=== PATIENT | female | born 1965 | race Caucasian/White ===

== ENCOUNTER 2020-08-08 10:09 | Observation (INO) | payer OTHER ==
[2020-08-08] MEDS ORDERED: diphenhydrAMINE 50 MG/ML 1 ML VIAL IVP STA (10:25)
[2020-08-08] MEDS ORDERED: MORPHINE SULFATE 4 MG/ML SYRINGE IV STA (10:25)
[2020-08-08] MEDS ORDERED: ONDANSETRON 4 MG/2 ML VIAL IVP STA (10:25)
[2020-08-08] MEDS ORDERED: SODIUM CHLORIDE 0.9% 1,000 ML IV STA (10:25)
--- NOTE | 2020-08-08 10:35 | ED ---
Abdominal Pain HPI - General Chief Complaint: Abdominal Pain Stated Complaint: abd pain Time Seen by Provider: 08/08/20 10:15 Source: patient Mode of arrival: wheelchair Limitations: no limitations - History of Present Illness Initial Comments: Patient is a 54-year-old female with past medical history remarkable for multiple abdominal surgeries including lap band procedure done 10 years ago with no complications, Bladder suspension surgery, tummy tuck, breast augmentation presents emergency department complaining of acute onset of abdominal pain. Th is occurred this morning at approximately 6 AM and is progressively worse. She is comes as a sharp, achy sensation epigastric and right upper quadrant region. She endorses multiple episodes of nonbilious nonbloody emesis, likely secondary to pain. She's been unable tolerate by mouth intake since onset of the pain this morning. She denies any chest pain, shortness breath fevers, chills, cough and she denies any sick contacts. Denies any urinary complaints, dysuria, hematuria. Should she is not . She is no pedal discharged or bleeding. She denies any diarrhea. She last had a normal bowel movement this morning. This was nonbloody. Patient otherwise has no acute complaints at this time. She was strep and this causing pain, and she contacted her surgeon, Dr. Neli who instructed her to come to the emergency department for evaluation. - Related Data Home Medications Medication Instructions Recorded Confirmed No Known Home Medications 08/08/20 08/08/20 Allergies Allergy/AdvReac Type Severity Reaction Status Date / Time No Known Allergies Allergy Verified 08/08/20 11:08 Review of Systems ROS Statement: Those systems with pertinent positive or pertinent negative responses have been documented in the HPI. Review of Systems: CONST: Denies fever EYES: Denies blurry vision ENT: Denies nasal congestion C/V: Denies Chest pain RESP: Denies shortness of breath GI: Endorses abdominal pain : Denies dysuria SKIN: Denies rash. MSK: Denies joint pain. NEURO: Denies headache ROS Other: All systems not noted in ROS Statement are negative. Past Medical History Past Medical History: No Reported History History of Any Multi-Drug Resistant Organisms: None Reported Additional Past Surgical History / Comment(s): lap band, bladder suspension, tummy tuck, breast implants Past Psychological History: No Psychological Hx Reported Smoking Status: Never smoker Past Alcohol Use History: None Reported Past Drug Use History: None Reported Additional History: PCP is Dr. Kinney. Surgeon is Dr. Wilson. - Past Family History Mother History Unknown: Yes General Exam - General Exam Comments Initial Comments: Constitutional: Blood pressure was 152/88, pulse was 85, respirations were 18, pulse oximetry was 100% on room, temperature was 97.8. General: Degrees in mild to moderate distress secondary to abdominal pain. HEAD: Normal with no signs of head trauma. EYES: PERRLA, EOMI, conjunctiva normal, no discharge. ENT: Hearing grossly intact, normal oropharynx. RESPIRATORY: Clear breath sounds bilaterally. No wheezes, rales, or rhonchi. C/V: Regular rate and rhythm. S1 and S2 auscultated, no edema, peripheral pulses 2+ and intact throughout ABD: Abdomen soft, nondistended. Patient is tender to palpation in the epigastric and right upper quadrant in addition to right CVA tenderness to percussion. There is no guarding. There are no peritoneal signs or rebound tenderness. EXT: Normal range of motion, no obvious deformity SKIN: No rashes or lesions observed on exposed skin. NEURO: Alert and oriented 4. Limitations: no limitations Course Vital Signs 08/08/20 08/08/20 08/08/20 10:10 13:54 15:29 Temperature 97.8 F Pulse Rate 85 70 67 Respiratory 18 18 18 Rate Blood Pressure 152/88 141/70 129/61 O2 Sat by Pulse 100 99 97 Oximetry 08/08/20 15:45 Temperature 97.8 F Pulse Rate 67 Respiratory 18 Rate Blood Pressure 129/61 O2 Sat by Pulse 97 Oximetry Medical Decision Making - Medical Decision Making Based on the patient's presentation and physical exam, concern for possible ac leni intra-abdominal process for current symptoms, cannot rule out ACS and at this time either due to her age with complaints of primarily nausea and vomiting the presence of epigastric abdominal pain. Therefore we will obtain an abdominal laboratory studies: CMP, CBC. We will also obtain urine laboratory studies including urinalysis. Troponin, EKG, chest x-ray will be obtained to evaluate for ACS. Heart score is low at 1. She will be connected to continuous cardiac monitoring while she is here with department. She'll be symptomatically treated with a liter fluid bolus as well as IV famotidine, Benadryl, morphine, Zofran. CT abdomen and pelvis also be obtained. She was in agreement with this plan. I attempted to contact the patient's surgeon, Dr. Wilson, however he is out of town. EKG was obtained revealed no acute signs for ischemic changes. Chest x-ray revealed no acute cardiopulmonary process.CT abdomen and pelvis revealed a distended gallbladder with small gallstones seen, with a small amount of pericholecystic fluid. Patient's laboratory studies are remarkable for an elevated AST that is mildly elevated to 54. Troponin is normal. The remainder of her laboratory studies are within normal limits. On reevaluation, patient is continued Pain, this time primarily in the right upper quadrant. I did redose her pain medications. I did discuss with her the results of her laboratory studies and explained that she appears to be having symptomatic cholelithiasis. I explained that she may require surgery and I would like to image the hospital and she is still not tolerating by mouth intake and is continuing to have severe abdominal pain. She was in agreement with this plan. The patient's surgeon is out of town. Therefore I will consult and speak with the on-call surgeon, Dr. Alvarado. She agreed to accept the patient under her service. I therefore admitted the patient in fair condition to the surgery service. - Lab Data Result diagrams: 08/08/20 11:28 08/08/20 11:28 Lab Results 08/08/20 08/08/20 08/08/20 Range/Units 11:16 11:16 11:28 WBC 8.6 (3.8-10.6) k/uL RBC 4.30 (3.80-5.40) m/uL Hgb 13.3 (11.4-16.0) gm/dL Hct 40.0 (34.0-46.0) % MCV 93.0 (80.0-100.0) fL MCH 31.0 (25.0-35.0) pg MCHC 33.4 (31.0-37.0) g/dL RDW 12.1 (11.5-15.5) % Plt Count 227 (150-450) k/uL MPV 7.6 Neutrophils % 77 % Lymphocytes % 15 % Monocytes % 6 % Eosinophils % 0 % Basophils % 1 % Neutrophils # 6.6 (1.3-7.7) k/uL Lymphocytes # 1.3 (1.0-4.8) k/uL Monocytes # 0.5 (0-1.0) k/uL Eosinophils # 0.0 (0-0.7) k/uL Basophils # 0.1 (0-0.2) k/uL PT (9.0-12.0) sec INR (<1.2) APTT (22.0-30.0) sec Sodium (137-145) mmol/L Potassium (3.5-5.1) mmol/L Chloride (98-107) mmol/L Carbon Dioxide (22-30) mmol/L Anion Gap mmol/L BUN (7-17) mg/dL Creatinine (0.52-1.04) mg/dL Est GFR (CKD-EPI)AfAm (>60 ml/min/1.73 sqM) Est GFR (CKD-EPI)NonAf (>60 ml/min/1.73 sqM) Glucose (74-99) mg/dL Calcium (8.4-10.2) mg/dL Total Bilirubin (0.2-1.3) mg/dL AST (14-36) U/L ALT (4-34) U/L Alkaline Phosphatase (38-126) U/L Troponin I (0.000-0.034) ng/mL Total Protein (6.3-8.2) g/dL Albumin (3.5-5.0) g/dL Lipase (23-300) U/L Urine Color Light Yellow Urine Appearance Clear (Clear) Urine pH 6.5 (5.0-8.0) Ur Specific [place] 1.011 (1.001-1.035) Urine Protein Negative (Negative) Urine Glucose (UA) Negative (Negative) Urine Ketones Negative (Negative) Urine Blood Negative (Negative) Urine Nitrite Negative (Negative) Urine Bilirubin Negative (Negative) Urine Urobilinogen <2.0 (<2.0) mg/dL Ur Leukocyte Esterase Negative (Negative) Urine HCG, Qual Not Detected (Not Detectd) Blood Type Confirm 08/08/20 08/08/20 08/08/20 Range/Units 11:28 11:28 11:28 WBC (3.8-10.6) k/uL RBC (3.80-5.40) m/uL Hgb (11.4-16.0) gm/dL Hct (34.0-46.0) % MCV (80.0-100.0) fL MCH (25.0-35.0) pg MCHC (31.0-37.0) g/dL RDW (11.5-15.5) % Plt Count (150-450) k/uL MPV Neutrophils % % Lymphocytes % % Monocytes % % Eosinophils % % Basophils % % Neutrophils # (1.3-7.7) k/uL Lymphocytes # (1.0-4.8) k/uL Monocytes # (0-1.0) k/uL Eosinophils # (0-0.7) k/uL Basophils # (0-0.2) k/uL PT 10.4 (9.0-12.0) sec INR 1.0 (<1.2) APTT 25.4 (22.0-30.0) sec Sodium 140 (137-145) mmol/L Potassium 4.1 (3.5-5.1) mmol/L Chloride 106 (98-107) mmol/L Carbon Dioxide 28 (22-30) mmol/L Anion Gap 6 mmol/L BUN 14 (7-17) mg/dL Creatinine 0.49 L (0.52-1.04) mg/dL Est GFR (CKD-EPI)AfAm >90 (>60 ml/min/1.73 sqM) Est GFR (CKD-EPI)NonAf >90 (>60 ml/min/1.73 sqM) Glucose 87 (74-99) mg/dL Calcium 10.1 (8.4-10.2) mg/dL Total Bilirubin 0.8 (0.2-1.3) mg/dL AST 54 H (14-36) U/L ALT 28 (4-34) U/L Alkaline Phosphatase 75 (38-126) U/L Troponin I <0.012 (0.000-0.034) ng/mL Total Protein 7.7 (6.3-8.2) g/dL Albumin 4.7 (3.5-5.0) g/dL Lipase 291 (23-300) U/L Urine Color Urine Appearance (Clear) Urine pH (5.0-8.0) Ur Specific [place] (1.001-1.035) Urine Protein (Negative) Urine Glucose (UA) (Negative) Urine Ketones (Negative) Urine Blood (Negative) Urine Nitrite (Negative) Urine Bilirubin (Negative) Urine Urobilinogen (<2.0) mg/dL Ur Leukocyte Esterase (Negative) Urine HCG, Qual (Not Detectd) Blood Type Confirm 08/08/20 Range/Units 11:28 WBC (3.8-10.6) k/uL RBC (3.80-5.40) m/uL Hgb (11.4-16.0) gm/dL Hct (34.0-46.0) % MCV (80.0-100.0) fL MCH (25.0-35.0) pg MCHC (31.0-37.0) g/dL RDW (11.5-15.5) % Plt Count (150-450) k/uL MPV Neutrophils % % Lymphocytes % % Monocytes % % Eosinophils % % Basophils % % Neutrophils # (1.3-7.7) k/uL Lymphocytes # (1.0-4.8) k/uL Monocytes # (0-1.0) k/uL Eosinophils # (0-0.7) k/uL Basophils # (0-0.2) k/uL PT (9.0-12.0) sec INR (<1.2) APTT (22.0-30.0) sec Sodium (137-145) mmol/L Potassium (3.5-5.1) mmol/L Chloride (98-107) mmol/L Carbon Dioxide (22-30) mmol/L Anion Gap mmol/L BUN (7-17) mg/dL Creatinine (0.52-1.04) mg/dL Est GFR (CKD-EPI)AfAm (>60 ml/min/1.73 sqM) Est GFR (CKD-EPI)NonAf (>60 ml/min/1.73 sqM) Glucose (74-99) mg/dL Calcium (8.4-10.2) mg/dL Total Bilirubin (0.2-1.3) mg/dL AST (14-36) U/L ALT (4-34) U/L Alkaline Phosphatase (38-126) U/L Troponin I (0.000-0.034) ng/mL Total Protein (6.3-8.2) g/dL Albumin (3.5-5.0) g/dL Lipase (23-300) U/L Urine Color Urine Appearance (Clear) Urine pH (5.0-8.0) Ur Specific [place] (1.001-1.035) Urine Protein (Negative) Urine Glucose (UA) (Negative) Urine Ketones (Negative) Urine Blood (Negative) Urine Nitrite (Negative) Urine Bilirubin (Negative) Urine Urobilinogen (<2.0) mg/dL Ur Leukocyte Esterase (Negative) Urine HCG, Qual (Not Detectd) Blood Type Confirm A Positive - EKG Data -: EKG Interpreted by Me EKG Comments: 12-lead Electrocardiogram Interpretation Note EKG was reviewed and interpreted by myself. 12-lead ECG performed at [facility] is interpreted by me as revealing normal sinus rhythm at a rate of 65 beats per minute. [place] is normal. [place] intervals 158 ms, QRS caodaism 86 months QTc 418.. There were no ST or T wave abnormalities to suggest myocardial ischemia or injury. R-wave progression across the precordium is slightly delayed, likely secondary to placement.. By my interpretation this EKG is non-diagnostic for acute ischemia. Disposition Clinical Impression: Symptomatic cholelithiasis Disposition: ADMITTED IP TO THIS [facility] Condition: Fair Decision to Admit Reason: Admit from EC
[2020-08-08] MEDS ORDERED: FAMOTIDINE 20 MG/2 ML VIAL IV STA (10:55)
[2020-08-08 11:34] LABS: Appearance,Urine Clear (Clear); Bilirubin,Urine Negative (Negative); Blood,Urine Negative (Negative); Color,Urine Light Yellow; Glucose,Urine (UA) Negative (Negative); Ketones,Urine Negative (Negative); Leukocyte Esterase,Urine Negative (Negative); Nitrite,Urine Negative (Negative); PH, Urine 6.5 (5.0-8.0); Protein,Urine Negative (Negative); Specific Gravity,Urine 1.011 (1.001-1.035); Urobilinogen,Urine <2.0 mg/dL (<2.0)
--- NOTE | 2020-08-08 11:46 | XR ---
EXAMINATION TYPE: XR chest 1V portable DATE OF EXAM: 08/08/2020 COMPARISON: NONE HISTORY: Abdominal pain TECHNIQUE: Single frontal view of the chest is obtained. FINDINGS: There is no focal air space opacity, pleural effusion, or pneumothorax seen. The cardiac silhouette size is within normal limits. The osseous structures are intact. IMPRESSION: No acute process.
[2020-08-08 12:07] LABS: Basophils # (A) 0.1 k/uL (0-0.2); Basophils % (A) 1 %; Eosinophils % (A) 0 %; HGB 13.3 gm/dL (11.4-16.0); Lymphocytes # (A) 1.3 k/uL (1.0-4.8); Lymphocytes % (A) 15 %; MCHC 33.4 g/dL (31.0-37.0); Mean Platelet Volume 7.6; Monocytes # (A) 0.5 k/uL (0-1.0); Monocytes % (A) 6 %; Neutrophils # (A) 6.6 k/uL (1.3-7.7); Neutrophils % (A) 77 %; Platelet Count 227 k/uL (150-450); RDW 12.1 % (11.5-15.5); WBC 8.6 k/uL (3.8-10.6)
[2020-08-08 12:17] LABS: Partial Thromboplastin Time 25.4 sec (22.0-30.0); Prothrombin Time 10.4 sec (9.0-12.0)
[2020-08-08 12:27] LABS: ALT 28 U/L (4-34); AST 54 U/L (14-36); African American GFR (CKD) >90 (>60 ml/min/1.73 sqM); Albumin 4.7 g/dL (3.5-5.0); Alkaline Phosphatase 75 U/L (38-126); Anion Gap 6 mmol/L; Blood Urea Nitrogen 14 mg/dL (7-17); Calcium 10.1 mg/dL (8.4-10.2); Carbon Dioxide 28 mmol/L (22-30); Chloride 106 mmol/L (98-107); Glucose 87 mg/dL (74-99); Lipase 291 U/L (23-300); Non-African American GFR(CKD) >90 (>60 ml/min/1.73 sqM); Potassium 4.1 mmol/L (3.5-5.1); Sodium 140 mmol/L (137-145); Total Bilirubin 0.8 mg/dL (0.2-1.3); Total Protein 7.7 g/dL (6.3-8.2)
--- NOTE | 2020-08-08 13:40 | CT ---
EXAMINATION TYPE: CT abdomen pelvis w con DATE OF EXAM: 08/08/2020 COMPARISON: None. HISTORY: RUQ pain CT DLP: 925.1 mGycm CONTRAST: CT scan of the abdomen and pelvis is performed without Oral Contrast and with IV Contrast, patient in jected with 100 mL of Isovue 300. FINDINGS: LUNG BASES-: No visible nodule. No infiltrate. LIVER/GB: The gallbladder is distended at 9 cm with small gallstones seen. Small amount of perichol ecystic fluid identified. Correlate for acute cholecystitis. No space occupying hepatic lesion. Bili bradley tree is of normal caliber. PANCREAS: No inflammation. No distinct mass. SPLEEN: No splenic enlargement. No lesion seen. ADRENALS: No nodule. No thickening. KIDNEYS/BLADDER: No hydronephrosis. No nephrolithiasis. No distinct renal mass. Urinary bladder g rossly unremarkable. BOWEL: Normal appendix. Normal bowel caliber. No inflammation. Gastric banding device is in place. GENITAL ORGANS: No gross abnormality. LYMPH NODES: No greater than 1cm abdominal or pelvic lymph nodes are appreciated. AORTA: No significant abnormality. OSSEOUS STRUCTURES: No significant abnormality is seen. OTHER: No significant additional abnormality is seen. IMPRESSION: 1. The gallbladder is distended at 9 cm with small gallstones seen. Small amount of pericholecystic fluid identified. Correlate for acute cholecystitis.
[2020-08-08] MEDS ORDERED: MORPHINE SULFATE 4 MG/ML SYRINGE IVP STA (13:49)
[2020-08-08] MEDS ORDERED: NALOXONE 0.4 MG/ML 1 ML VIAL IV PRN (14:23)
[2020-08-08] MEDS ORDERED: DOCUSATE 100 MG CAP PO PRN (14:23)
[2020-08-08] MEDS ORDERED: SODIUM CHLORIDE 0.9% 1,000 ML IV ONE (14:23)
[2020-08-08] MEDS: ONDANSETRON 4 MG/2 ML VIAL IVP PRN ×2 (15:30→23:02)
[2020-08-08] MEDS: KETOROLAC 15 MG/ML 1 ML VIAL IVP PRN ×2 (15:31→21:41)
[2020-08-08] MEDS: MORPHINE SULFATE 4 MG/ML SYRINGE IV PRN ×2 (16:21→20:22)
[2020-08-08] MEDS: HEPARIN SODIUM,PORCINE/PF 5,000 UNIT/0.5 ML SYRINGE SQ SCH ×2 (16:22→23:49)
[2020-08-08] MEDS: diphenhydrAMINE 50 MG/ML 1 ML VIAL IVP PRN ×2 (17:00→23:03)
[2020-08-09] MEDS: MORPHINE SULFATE 4 MG/ML SYRINGE IV PRN ×6 (00:11→16:48)
[2020-08-09] MEDS: diphenhydrAMINE 50 MG/ML 1 ML VIAL IVP PRN ×3 (06:01→18:04)
[2020-08-09] MEDS: KETOROLAC 15 MG/ML 1 ML VIAL IVP PRN (06:22)
[2020-08-09] MEDS ORDERED: SODIUM CHLORIDE 0.9% 2,000 ML IV ONE ×2 (06:22→21:42)
[2020-08-09] MEDS ORDERED: SCOPOLAMINE 1.5MG/72HR PATCH TRANSDERM SCH (07:00)
[2020-08-09] MEDS: ONDANSETRON 4 MG/2 ML VIAL IVP PRN ×2 (07:26→16:49)
[2020-08-09] MEDS: ACETAMINOPHEN IV (For NPO) 1,000 MG in EMPTY BAG 1 BAG IVPB SCH ×3 (07:33→22:29)
[2020-08-09] MEDS: HEPARIN SODIUM,PORCINE/PF 5,000 UNIT/0.5 ML SYRINGE SQ SCH ×3 (08:28→23:49)
[2020-08-09] MEDS: PANTOPRAZOLE 40 MG/10 ML VIAL IVP SCH (08:28)
[2020-08-09] MEDS: PIPERACILLIN-TAZOBACTAM 3.375 GM in SODIUM CHLORIDE 0.9% 100 ML IVPB SCH ×2 (08:29→16:50)
--- NOTE | 2020-08-09 11:26 | P.GSHP ---
History of Present Illness H&P Date: 08/09/20 CHIEF COMPLAINT: Abdominal pain HISTORY OF PRESENT ILLNESS: This is a 54-year-old female with past surgical history of lap band that was completed [address] Neil, bladder suspension in June 2020, tummy tuck and hysterectomy. Patient presented to the hospital with complaints of right upper quadrant and epigastric abdominal pain that started around 6 AM yesterday morning. Patient complaining of a sharp pain she rated 10 out of 10. Pain continued to get progressively worse throughout the day. Patient has had decreased appetite and she has had nausea with 2 episodes of vomiting. She denies any fever chills or sweats. Denies any change in bowel habits. She had a computed tomography scan of the abdomen and pelvis shows gallbladder is distended at 9 cm with small gallstones. Small amount of pericolic cystic fluid identified. Correlate for acute cholecystitis. Patient has been admitted to the hospital for an acute cholecystitis. Started on IV antibiotics. Patient denies any cardiac history. PAST MEDICAL HISTORY: See list. PAST SURGICAL HISTORY: See list. MEDICATIONS: See list. ALLERGIES: See list. SOCIAL HISTORY: No illicit drug use. REVIEW OF SYSTEMS: CONSTITUTIONAL: Denies fever or chills. HEENT: Denies blurred vision, vision changes, or eye pain. Denies hemoptysis ENDOCRINE: Denies heat or cold intolerance. CARDIOVASCULAR: Denies chest pain or pressure. RESPIRATORY: No shortness of breath. GASTROINTESTINAL: Please refer to HPI NEURO: Denies history of seizures. PSYCH: No depression or suicidal ideation HEMATOLOGIC: Denies bleeding disorders. LYMPHATIC: The patient denies any lumps and bumps around the neck. GENITOURINARY: Denies any blood in urine or increased urinary frequency. MUSCULOSKELETAL: Denies myalgias. Denies joint swelling. Denies decreased range of motion beyond patients baseline. SKIN: Denies pruitis. Denies rash. PHYSICAL EXAM: VITAL SIGNS: Reviewed GENERAL: Well-developed in no acute distress. HEENT: No sclera icterus. Extraocular movements grossly intact. Moist buccal mucosa. Head is atraumatic, normocephalic. Hears conversational speech. No nasal drainage. NECK: Supple without lymphadenopathy. CHEST: Non-labored respirations and equal bilateral excursions. CARDIOVASCULAR: Palpable 2+ radial pulses. ABDOMEN: Soft. Nondistended. Tenderness to palpation of the right upper quadrant and epigastric area. Patient does have a old healed mid abdominal incision MUSCULOSKELETAL: No clubbing or cyanosis. NEUROLOGIC: No focal or lateralizing signs. Cranial nerves II through XII grossly intact. PSYCH: Appropriate affect. Alert and oriented to person, place and time. SKIN: Well perfused. Good skin turgor. LABORATORY DATA: WBC 8.6 hemoglobin 13.3 platelets 227 INR 1.0 creatinine 0.49 sodium 140 AST 54 ALT 28 total bilirubin 0.8 lipase 291 troponin negative Urinalysis negative IMAGING: computed tomography scan of the abdomen and pelvis shows gallbladder is distended at 9 cm with small gallstones. Small amount of pericolic cystic fluid identified. Correlate for acute cholecystitis Chest x-ray no acute process EKG normal sinus rhythm ASSESSMENT: 1. Acute cholecystitis 2. Prior abdominal surgeries including lap band, bladder suspension, tummy tuck and hysterectomy PLAN: -Patient is scheduled for robotic cholecystectomy today, 08/09/[address] De Oliveira -Keep patient nothing by mouth -Continue IV antibiotics -Continue IV fluids -Continue pain medication as needed -Continue antiemetics Physician Bone Char Puller note has been reviewed by physician. Signing provider agrees with the documented findings, assessment, and plan of care. Past Medical History Past Medical History: No Reported History Additional Past Medical History / Comment(s): kidney stones History of Any Multi-Drug Resistant Organisms: None Reported Past Surgical History: Hysterectomy Additional Past Surgical History / Comment(s): lap band, bladder suspension, frances my tuck, breast implants Past Anesthesia/Blood Transfusion Reactions: No Reported Reaction Past Psychological History: No Psychological Hx Reported Smoking Status: Never smoker Past Alcohol Use History: None Reported Past Drug Use History: None Reported - Past Family History Mother History Unknown: Yes Medications and Allergies Home Medications Medication Instructions Recorded Confirmed Type No Known Home Medications 08/08/20 08/08/20 History Allergies Allergy/AdvReac Type Severity Reaction Status Date / Time No Known Allergies Allergy Verified 08/08/20 11:08 Surgical - Exam Vital Signs Temp Pulse Resp BP Pulse Ox 97.8 F 85 18 152/88 100 08/08/20 10:10 08/08/20 10:10 08/08/20 10:10 08/08/20 10:10 08/08/20 10:10 Results - Labs 08/08/20 11:28 08/08/20 11:28 Abnormal Lab Results - Last 24 Hours (Table) 08/08/20 Range/Units 11:28 Creatinine 0.49 L (0.52-1.04) mg/dL AST 54 H (14-36) U/L Diabetes panel 08/08/20 Range/Units 11:28 Sodium 140 (137-145) mmol/L Potassium 4.1 (3.5-5.1) mmol/L Chloride 106 (98-107) mmol/L Carbon Dioxide 28 (22-30) mmol/L BUN 14 (7-17) mg/dL Creatinine 0.49 L (0.52-1.04) mg/dL Glucose 87 (74-99) mg/dL Calcium 10.1 (8.4-10.2) mg/dL AST 54 H (14-36) U/L ALT 28 (4-34) U/L Alkaline Phosphatase 75 (38-126) U/L Total Protein 7.7 (6.3-8.2) g/dL Albumin 4.7 (3.5-5.0) g/dL Calcium panel 08/08/20 Range/Units 11:28 Calcium 10.1 (8.4-10.2) mg/dL Albumin 4.7 (3.5-5.0) g/dL Pituitary panel 08/08/20 Range/Units 11:28 Sodium 140 (137-145) mmol/L Potassium 4.1 (3.5-5.1) mmol/L Chloride 106 (98-107) mmol/L Carbon Dioxide 28 (22-30) mmol/L BUN 14 (7-17) mg/dL Creatinine 0.49 L (0.52-1.04) mg/dL Glucose 87 (74-99) mg/dL Calcium 10.1 (8.4-10.2) mg/dL Adrenal panel 08/08/20 Range/Units 11:28 Sodium 140 (137-145) mmol/L Potassium 4.1 (3.5-5.1) mmol/L Chloride 106 (98-107) mmol/L Carbon Dioxide 28 (22-30) mmol/L BUN 14 (7-17) mg/dL Creatinine 0.49 L (0.52-1.04) mg/dL Glucose 87 (74-99) mg/dL Calcium 10.1 (8.4-10.2) mg/dL Total Bilirubin 0.8 (0.2-1.3) mg/dL AST 54 H (14-36) U/L ALT 28 (4-34) U/L Alkaline Phosphatase 75 (38-126) U/L Total Protein 7.7 (6.3-8.2) g/dL Albumin 4.7 (3.5-5.0) g/dL
[2020-08-09] MEDS: KETOROLAC 15 MG/ML 1 ML VIAL IVP SCH ×3 (12:18→23:50)
[2020-08-09] MEDS: SODIUM CHLORIDE 0.9% 1,000 ML IV SCH (12:19)
[2020-08-09] MEDS ORDERED: INDOCYANINE GREEN 25 MG VIAL IV STA (15:30)
[2020-08-09] MEDS: HYDROmorphone 1 MG/ML 1 ML SYRINGE IVP PRN (20:58)
[2020-08-09] MEDS ORDERED: TRIMETHOBENZAMIDE 100 MG/ML 2 ML VIAL IM PRN (22:00)
[2020-08-09] MEDS ORDERED: DEXAMETHASONE SOD PHOSPHATE 10 MG/ML 1 ML VIAL IV ONE (22:00)
[2020-08-09] MEDS: METOCLOPRAMIDE 5 MG/ML 2 ML VIAL IVP SCH (22:13)
[2020-08-09] MEDS: MAGNESIUM SULFATE-D5W PMX 1 GM in DEXTROSE/WATER 1 100ML.BAG IVPB SCH ×2 (22:36→23:41)
[2020-08-09] MEDS: ONDANSETRON 4 MG/2 ML VIAL IVP SCH (23:49)
[2020-08-10] MEDS: PIPERACILLIN-TAZOBACTAM 3.375 GM in SODIUM CHLORIDE 0.9% 100 ML IVPB SCH ×4 (00:52→23:58)
[2020-08-10] MEDS: SODIUM CHLORIDE 0.9% 1,000 ML IV SCH ×4 (01:23→19:00)
[2020-08-10] MEDS: MORPHINE SULFATE 4 MG/ML SYRINGE IV PRN ×2 (01:58→05:44)
[2020-08-10] MEDS: ACETAMINOPHEN IV (For NPO) 1,000 MG in EMPTY BAG 1 BAG IVPB SCH (04:05)
[2020-08-10] MEDS: METOCLOPRAMIDE 5 MG/ML 2 ML VIAL IVP SCH ×4 (04:05→20:56)
[2020-08-10] MEDS: KETOROLAC 15 MG/ML 1 ML VIAL IVP SCH ×4 (05:44→23:51)
[2020-08-10] MEDS: ONDANSETRON 4 MG/2 ML VIAL IVP SCH ×4 (05:45→23:49)
[2020-08-10] MEDS: HEPARIN SODIUM,PORCINE/PF 5,000 UNIT/0.5 ML SYRINGE SQ SCH ×3 (08:09→23:53)
[2020-08-10] MEDS: PANTOPRAZOLE 40 MG/10 ML VIAL IVP SCH (08:09)
[2020-08-10] MEDS: HYDROmorphone 1 MG/ML 1 ML SYRINGE IVP PRN ×4 (08:17→23:53)
[2020-08-10] MEDS: diphenhydrAMINE 50 MG/ML 1 ML VIAL IVP PRN (10:34)
[2020-08-10 13:54] LABS: Basophils % (A) 0 %; Eosinophils % (A) 0 %; HCT 39.3 % (34.0-46.0); Lymphocytes # (A) 0.5 k/uL (1.0-4.8); Lymphocytes % (A) 12 %; MCH 30.9 pg (25.0-35.0); MCV 93.6 fL (80.0-100.0); Mean Platelet Volume 7.3; Monocytes # (A) 0.2 k/uL (0-1.0); Monocytes % (A) 4 %; Neutrophils # (A) 3.7 k/uL (1.3-7.7); Neutrophils % (A) 83 %; Platelet Count 225 k/uL (150-450); RDW 12.4 % (11.5-15.5); WBC 4.5 k/uL (3.8-10.6)
[2020-08-10 14:17] LABS: ALT 17 U/L (4-34); AST 31 U/L (14-36); African American GFR (CKD) >90 (>60 ml/min/1.73 sqM); Albumin 3.7 g/dL (3.5-5.0); Alkaline Phosphatase 60 U/L (38-126); Anion Gap 9 mmol/L; Blood Urea Nitrogen 12 mg/dL (7-17); Calcium 9.3 mg/dL (8.4-10.2); Carbon Dioxide 19 mmol/L (22-30); Chloride 110 mmol/L (98-107); Glucose 89 mg/dL (74-99); Non-African American GFR(CKD) >90 (>60 ml/min/1.73 sqM); Potassium 4.4 mmol/L (3.5-5.1); Sodium 138 mmol/L (137-145); Total Bilirubin 0.8 mg/dL (0.2-1.3); Total Protein 6.4 g/dL (6.3-8.2)
[2020-08-10] MEDS: IV FLUID CONTINUATION 1,000 ML IV ONE (14:40)
[2020-08-10] MEDS ORDERED: IV FLUID CONTINUATION 1,000 ML IV ONE (14:45)
--- NOTE | 2020-08-10 15:43 | P.HPADDEND ---
H&P Addendum H&P Addendum Date: 08/10/20 Benefits and risks of surgery described. We'll proceed with robotic cholecystectomy.
[2020-08-10] MEDS ORDERED: GLYCOPYRROLATE 0.2 MG/ML 2 ML VIAL ONE (15:56)
[2020-08-10] MEDS ORDERED: KETOROLAC 15 MG/ML 1 ML VIAL ONE (15:56)
[2020-08-10] MEDS ORDERED: PROPOFOL 10 MG/ML 20 ML VIAL IV ONE (15:56)
[2020-08-10] MEDS ORDERED: MIDAZOLAM 2 MG/2 ML VIAL ONE (15:56)
[2020-08-10] MEDS ORDERED: DEXAMETHASONE SOD PHOSPHATE 4 MG/ML 1 ML VIAL ONE (15:56)
[2020-08-10] MEDS ORDERED: ROCURONIUM 10 MG/ML (5 ML VIAL) IV ONE (15:56)
[2020-08-10] MEDS ORDERED: INDOCYANINE GREEN 25 MG VIAL IV ONE (15:56)
[2020-08-10] MEDS ORDERED: SUCCINYLCHOLINE CHLORIDE 100 MG/5 ML SYR IV ONE (15:56)
[2020-08-10] MEDS ORDERED: LIDOCAINE 1% INJ 10MG/ML (20 ML MDV) ONE (15:56)
[2020-08-10] MEDS ORDERED: NEOSTIGMINE 1 MG/ML 10 ML VIAL ONE (15:56)
[2020-08-10] MEDS ORDERED: ONDANSETRON 4 MG/2 ML VIAL ONE (15:56)
[2020-08-10] MEDS ORDERED: fentaNYL (PF) 50 MCG/ML 2 ML AMP ONE (15:56)
[2020-08-10] MEDS ORDERED: LIDOCAINE 1%-EPI 1:100,000 20 ML VIAL SQ ONE ×2 (16:29→16:36)
[2020-08-10] MEDS ORDERED: LACTATED RINGERS 1,000 ML IV ONE (16:30)
--- NOTE | 2020-08-10 17:38 | P.OP ---
Date of Procedure: 08/10/20 Surgeon: Krystal De Oliveira Description of Procedure: SURGEON: KRYSTAL DE OLIVEIRA MD PREOPERATIVE DIAGNOSES: 1. Acute cholecystitis with right upper quadrant abdominal pain 2. History of adjustable gastric band 3. Intractable nausea and vomiting 4. Elevated AST 5. History of abdominoplasty POSTOPERATIVE DIAGNOSES: 1. Acute cholecystitis with right upper quadrant abdominal pain 2. History of adjustable gastric band 3. Intractable nausea and vomiting 4. Elevated AST 5. History of abdominoplasty OPERATION: Robotic-assisted da Kathryn Xi laparoscopic cholecystectomy, multiport with FIREFLY ESTIMATED BLOOD LOSS: 5 mL. SPECIMENS REMOVED: Gallbladder. COMPLICATIONS: None. Operative Findings: 1. Lap band tubing unremarkable. 2. Lap band port unremarkable. 3. Features consistent with edema from acute cholecystitis INDICATIONS: The patient is a 54-year-old female who presents with acute cholecystitis. Robotic assisted laparoscopic approach was described. Benefits and risks of the procedure including but not limited to bleeding, infection, injury to the biliary tree was described. Informed consent was obtained. DESCRIPTION OF PROCEDURE: Patient was brought to the operating room, placed in supine position. After general induction, the abdomen had been prepped and draped in standard sterile fashion. The robotic da Kathryn XI system was primed. After a timeout protocol was performed, the patient had been prepped and draped in standard sterile fashion. The patient was injected with indocyanine green. A 5 mm 0 degrees laparoscopic trocar entry was performed along the left upper quadrant. The abdomen insufflated to 15 mmHg pressure which was tolerated well. Diagnostic laparoscopy demonstrated no injury to bowel viscera or mesentery. The liver surface was unremarkable. Lap band tubing was identified and unremarkable. All trochars were placed away from adjustable gastric band equipment. Next, two 8 mm robotic ports were placed along the right upper abdomen. The camera 8-mm port was maintained along the epigastrium. Another 8 mm port was placed along the left upper abdominal wall after exchanging the 5 mm port. Please note that the ports were placed at least 10 to 15 cm away from the target anatomy of the gallbladder. The robot was docked along the left lateral abdomen. The patient was repositioned in reverse Trendelenburg position. Using a grasper for arm 3, a grasper for arm 4, including hook cautery for arm 1, the robotic system was docked and primed as described. Instruments were interchanged by the therapeutic assistant including hook cautery, Bovie cautery and clip appliers. I had sat at the console. The patient had very limited intra-abdominal space due to pre-existing abdominoplasty adding complexity to the procedure. Next attention was brought to the infundibulum and cystic structures. The infundibulum and cystic duct were dissected free from surrounding tissues. The cystic duct was isolated. FIREFLY was used to identify the cystic artery and cystic structures. A critical view of safety was obtained. Large PLASTIC clips were used throughout the entire case. Using a clip fire control officer, 2 clips were placed at the junction of the infundibulum and cystic duct. The cystic duct was divided between clips. Next, the cystic artery was similarly clipped and cauterized. Electro-Bovie cautery was used to remove the gallbladder from the hepatic fossa. Hemostasis was checked and found to be adequate. The robot was undocked. I re-scrubbed into the case. Using a 10 mm Endo Catch bag via the left upper quadrant incision, the specimen was removed from the abdominal cavity. All pneumoperitoneum instruments were evacuated from the abdominal cavity. The incisions were reapproximated using 4-0 Monocryl in an interrupted subcuticular fashion. Fascial defects were less than 8 mm in size. Please note along the trocar sites, local anesthetic was placed as a field block prior to insertion of all instruments. Liquid glue was applied to the skin. At the end of the procedure needle, sponge, and instrument count had been verified correct by the refrigeration technician. The patient was transferred to postanesthesia care unit in stable condition. Intraoperative films were shared with the patient's family.
[2020-08-10] MEDS ORDERED: HYDROmorphone 0.5 MG/0.5 ML SYRINGE IVP ONE (17:58)
[2020-08-11] MEDS: HYDROmorphone 1 MG/ML 1 ML SYRINGE IVP PRN ×2 (03:34→06:36)
[2020-08-11] MEDS: METOCLOPRAMIDE 5 MG/ML 2 ML VIAL IVP SCH (03:35)
[2020-08-11] MEDS: SODIUM CHLORIDE 0.9% 1,000 ML IV SCH (03:38)
[2020-08-11] MEDS: KETOROLAC 15 MG/ML 1 ML VIAL IVP SCH (05:50)
[2020-08-11] MEDS: ONDANSETRON 4 MG/2 ML VIAL IVP SCH (05:51)
[2020-08-11 08:03] VITALS: BP 118/77; PULSE 72; RESP 18; TEMP 98.8
--- NOTE | 2020-08-12 07:33 | P.DS ---
Providers Date of admission: 08/08/20 15:03 Expected date of discharge: 08/11/20 Attending physician: Krystal De Oliveira Primary care physician: Cristela Parnell - Discharge Diagnosis(es) (1) Acute cholecystitis due to biliary calculus Status: Acute Hospital Course: The patient is a 54-year-old female presented with acute cholecystitis. She underwent laparoscopic cholecystectomy without sequelae. Postoperatively, she was tolerating diet. Discharge instructions were reviewed. Follow up in the office in 1 week described. Patient Condition at Discharge: Stable Plan - Discharge Summary Discharge Rx Participant: Yes New Discharge Prescriptions: New Ibuprofen [Motrin] 600 mg PO Q8HR PRN #30 tab PRN Reason: Pain Simethicone [Gas-X] 125 mg PO AC-TID PRN #20 capsule PRN Reason: Pain Acetaminophen Tab [Tylenol Tab] 1,000 mg PO Q6HR PRN #30 tablet PRN Reason: Pain Discharge Medication List Acetaminophen Tab [Tylenol Tab] 1,000 mg PO Q6HR PRN #30 tablet 08/10/20 [Rx] Ibuprofen [Motrin] 600 mg PO Q8HR PRN #30 tab 08/10/20 [Rx] Simethicone [Gas-X] 125 mg PO AC-TID PRN #20 capsule 08/10/20 [Rx] Follow up Appointment(s)/Referral(s): Cristela Parnell DO [Primary Care Provider] - 1-2 days Krystal De Oliveira MD [STAFF PHYSICIAN] - 08/15/20 Patient Instructions/Handouts: Low Fat Diet (DC), Laparoscopic Cholecystectomy (DC) Activity/Diet/Wound Care/Special Instructions: Recommend low-fat diet for the next 2 days. No lifting over 10 pounds in 2 weeks until August 24. May shower. No bath tub soaks for two weeks until August 24. Diet as tolerated. Use Tylenol, simethicone and ibuprofen or Aleve scheduled for the next 24-48 hours for best pain relief. Use ice along incisions for today to prevent swelling. Discharge Disposition: HOME SELF-CARE
== END 2020-08-11 08:05 | disposition home or self-care (01) ==
LOC: EC 10:09 → 6PED 15:03
PROVIDERS: ADMIT Surgery Plastic and Reconstructive Surgery; ATTEND Surgery Plastic and Reconstructive Surgery
DX: K80.12 Calculus of gallbladder with acute and chronic cholecystitis without obstruction (principal); Z98.84 Bariatric surgery status; Z98.82 Breast implant status; Z98.890 Other specified postprocedural states; Z90.710 Acquired absence of both cervix and uterus; Z87.442 Personal history of urinary calculi
CPT/HCPCS: 47562; S2900; 36415; 71045; 74177; 80053; 81003; 81025; 83690; 84484; 85025; 85610; 85730; 86850; 86900; 86901; 88304; 93005; 96361; 96374; 96375; 96376; 99285